=== PATIENT | male | born 1935 | race Caucasian/White ===

== ENCOUNTER 2017-02-22 10:31 | Emergency (ER) | payer MEDICARE ==
[2017-02-22 11:12] LABS: Bilirubin Negative (Negative); Blood, Urine Small (Negative); Glucose, Urine (Dipstick) Negative (Negative); Ketone, Urine Negative (Negative); Nitrite Negative (Negative); Protein, Urine (Dipstick) Negative (Neg-Trace); Urobilinogen 0.2 mg/dL (0.2-1.0)
[2017-02-22 11:15] LABS: Bacteria/HPF None Seen HPF (None Seen); Hyaline Casts/LPF 0-3 HYALINE CAST LPF (0-3 Hyaline); Squamous Epithelial None Seen HPF (0-3); WBC/HPF None Seen HPF (0-3)
[2017-02-22 11:16] LABS: #Eosinphils 0.1 thou/uL (0.0-0.7); #Lymphocytes 0.9 thou/uL (1.20-3.40); #Monocytes 0.5 thou/uL (0.11-0.59); #Neutrophils 3.6 thou/uL (1.40-6.50); %Basophils 0.2 % (0.0-1.0); %Eosinophils 2.1 % (0.0-10.0); %Lymphocytes 17.2 % (21.0-51.0); %Monocytes 10.4 % (0.0-10.0); Hematocrit 36.1 % (42.0-52.0); Mean Platelet Volume 6.6 fL (7.4-10.4); Red Blood Cell (RBC) Count 3.39 mill/uL (4.70-6.10); White Blood Cell (WBC) Count 5.2 thou/uL (4.8-10.8)
[2017-02-22 11:42] LABS: Troponin I Less than 0.010 ng/mL (< 0.028)
[2017-02-22 11:49] LABS: ALT (SGPT) 23 U/L (8-55); AST (SGOT) 31 U/L (5-34); Alkaline Phosphatase 123 U/L (40-150); Anion Gap 10 mmol/L (10-20); BUN (Urea Nitrogen) 29 mg/dL (8.4-25.7); Bilirubin, Total 0.9 mg/dL (0.2-1.2); Calc. Creatinine Clearance 0 mL/min (70-130); Calcium 9.3 mg/dL (7.8-10.44); Carbon Dioxide 25 mmol/L (23-31); Chloride 108 mmol/L (98-107); Estimated GFR-MDRD 57; Globulin 2.9 g/dL (2.4-3.5); Protein, Total 6.9 g/dL (5.8-8.1)
== END 2017-02-22 13:23 | disposition home or self-care (01) ==
LOC: ERS 10:31
DX: I95.1 Orthostatic hypotension (principal); Z79.82 Long term (current) use of aspirin; Z79.899 Other long term (current) drug therapy
CPT/HCPCS: 36415; 80053; 81003; 81015; 82553; 84484; 85025; 93005

== ENCOUNTER 2017-06-20 06:10 | Emergency (ER) | payer MEDICARE ==
[2017-06-20] MEDS ORDERED: Oxymetazoline HCl 0.05% ( 15 ML ) ONE (07:16)
[2017-06-20 07:48] LABS: #Eosinphils 0.3 thou/uL (0.0-0.7); #Monocytes 0.6 thou/uL (0.11-0.59); #Neutrophils 4.6 thou/uL (1.40-6.50); %Basophils 0.4 % (0.0-1.0); %Lymphocytes 15.1 % (21.0-51.0); %Monocytes 9.7 % (0.0-10.0); %Neutrophils 70.8 % (42.0-75.0); Hemoglobin 13.1 g/dL (14.0-18.0); Mean Corpuscular HGB CONC 32.9 g/dL (32.0-36.0); Mean Corpuscular Hemoglobin 33.6 pg (27.0-31.0); Mean Platelet Volume 6.7 fL (7.4-10.4); Platelet Count 145 thou/uL (130-400); RBC Distribution Width 13.3 % (11.5-14.5); White Blood Cell (WBC) Count 6.4 thou/uL (4.8-10.8)
[2017-06-20 07:53] LABS: PTT 49.6 SEC (22.9-36.1)
[2017-06-20 07:54] LABS: INR-International Normal Ratio 1.2; Prothrombin Time 15.8 SEC (12.0-14.7)
[2017-06-20 08:07] LABS: Anion Gap 8 mmol/L (10-20); BUN (Urea Nitrogen) 16 mg/dL (8.4-25.7); Calc. Creatinine Clearance 0 mL/min (70-130); Calcium 9.7 mg/dL (7.8-10.44); Carbon Dioxide 29 mmol/L (23-31); Chloride 106 mmol/L (98-107); Estimated GFR-MDRD 82; Glucose 112 mg/dL (83-110); Potassium 4.4 mmol/L (3.5-5.1); Sodium 139 mmol/L (136-145)
== END 2017-06-20 08:20 | disposition home or self-care (01) ==
LOC: ERS 06:10
DX: R04.0 Epistaxis (principal); D68.32 Hemorrhagic disorder due to extrinsic circulating anticoagulants; T45.515A Adverse effect of anticoagulants, initial encounter; I10 Essential (primary) hypertension; Z95.0 Presence of cardiac pacemaker; Z79.82 Long term (current) use of aspirin; Z79.01 Long term (current) use of anticoagulants; Z79.899 Other long term (current) drug therapy
CPT/HCPCS: 36415; 80048; 85025; 85610; 85730; 99283

== ENCOUNTER 2019-04-25 09:05 | Outpatient (CLI) | payer MEDICARE ==
--- NOTE | 2019-04-25 09:56 | MMO ---
Bilateral MAMMO Bilat Diag DDI+ZEESHAN. CLINICAL HISTORY: Patient is 84 years old and is seen for diagnostic exam. The patient has no family history of breast cancer. The patient has no personal history of cancer. VIEWS: The views performed were: bilateral craniocaudal with tomosynthesis; bilateral mediolateral oblique with tomosynthesis; and bilateral mediolateral with tomosynthesis. FILMS COMPARED: The present examination has been compared to a prior imaging study performed at [facility] on 04/25/2019. This study has been interpreted with the assistance of computer-aided detection. MAMMOGRAM FINDINGS: The breasts are almost entirely fat. Finding 1: Changes of left sided gynecomastia are noted. Finding 2: There is an oval mass measuring 3 millimeters with circumscribed margins seen in the outer region of the left breast. The mass was shown to be a lymph node on ultrasound. There are no suspicious masses, suspicious calcifications, or areas of architectural distortion. IMPRESSION: THERE IS NO MAMMOGRAPHIC EVIDENCE OF MALIGNANCY. THE RESULTS OF THIS EXAM WERE SENT TO THE PATIENT. ACR BI-RADS Category 2 - Benign finding MAMMOGRAPHY NOTE: 1. A negative mammogram report should not delay a biopsy if a dominant of clinically suspicious mass is present. 2. Approximately 10% to 15% of breast cancers are not detected by mammography. 3. Adenosis and dense breasts may obscure an underlying neoplasm. Reported by: JAVI LLOYD MD Electonically Signed: [id number]
--- NOTE | 2019-04-25 11:11 | ULT ---
LIMITED LEFT BREAST ULTRASOUND: TECHNIQUE: Limited sonographic interrogation of the left breast at the 2 o'clock position in the region of mammo graphic mass was performed. FINDINGS: There is a 3-4 mm lymph node present in the region of mammographic concern and corresponding with the mammographic finding. Changes of left gynecomastia are demonstrated mammographically. IMPRESSION: BI-RADS category 2 - benign findings. The patient is referred back to his clinician. POS: OFF
== END 2019-04-25 09:06 | disposition home or self-care (01) ==
LOC: BICMAMMO 09:05
PROVIDERS: ATTEND Surgery
DX: N64.89 Other specified disorders of breast (principal)
CPT/HCPCS: 76642; 77066; G0279

== ENCOUNTER 2019-06-19 06:12 | Outpatient (CLI) | payer MEDICARE ==
[2019-06-19 11:36] LABS: #Eosinphils 0.2 thou/uL (0.0-0.7); #Lymphocytes 1.2 thou/uL (1.20-3.40); #Monocytes 0.6 thou/uL (0.11-0.59); %Basophils 0.9 % (0.0-1.0); %Lymphocytes 24.4 % (21.0-51.0); %Monocytes 12.4 % (0.0-10.0); %Neutrophils 59.2 % (42.0-75.0); Hemoglobin 11.9 g/dL (14.0-18.0); Mean Corpuscular HGB CONC 32.8 g/dL (32.0-36.0); Mean Corpuscular Hemoglobin 33.4 pg (27.0-31.0); Mean Platelet Volume 7.5 fL (7.4-10.4); Platelet Count 110 thou/uL (130-400); RBC Distribution Width 12.5 % (11.5-14.5); Red Blood Cell (RBC) Count 3.56 mill/uL (4.70-6.10); White Blood Cell (WBC) Count 5.1 thou/uL (4.8-10.8)
[2019-06-19 12:03] LABS: ALT (SGPT) 30 U/L (8-55); AST (SGOT) 40 U/L (5-34); Albumin 4.2 g/dL (3.4-4.8); Alkaline Phosphatase 99 U/L (40-110); Anion Gap 14 mmol/L (10-20); BUN (Urea Nitrogen) 16 mg/dL (8.4-25.7); Bilirubin, Total 0.9 mg/dL (0.2-1.2); Calc. Creatinine Clearance 0 mL/min (70-130); Calcium 9.6 mg/dL (7.8-10.44); Carbon Dioxide 25 mmol/L (23-31); Chloride 108 mmol/L (98-107); Estimated GFR-MDRD 71; Globulin 2.5 g/dL (2.4-3.5); Glucose 118 mg/dL (83-110); Protein, Total 6.7 g/dL (5.8-8.1); Sodium 143 mmol/L (136-145)
== END 2019-06-19 06:13 | disposition home or self-care (01) ==
LOC: LABBT 06:12
PROVIDERS: ATTEND Internal Medicine Cardiovascular Disease
DX: Z01.818 Encounter for other preprocedural examination (principal); I35.0 Nonrheumatic aortic (valve) stenosis; I25.10 Atherosclerotic heart disease of native coronary artery without angina pectoris
CPT/HCPCS: 80053; 85025; 93005; 93010

== ENCOUNTER 2019-06-22 05:51 | Inpatient (IN) | payer MEDICARE ==
[2019-06-22] MEDS ORDERED: Lidocaine 1% (PF) 30 ML VIAL ONE ×2 (06:39→07:37)
[2019-06-22] MEDS ORDERED: Heparin (Artline) 1,000 ML ONE (06:39)
[2019-06-22] MEDS ORDERED: Heparin 10,000 UNITS/1 ML VIAL ONE (06:39)
[2019-06-22] MEDS ORDERED: Fentanyl 100 MCG/2 ML VIAL ONE (07:11)
[2019-06-22] MEDS ORDERED: Midazolam HCl 2 mg/2 ml Vial ONE (07:11)
[2019-06-22] MEDS ORDERED: Protamine Sulfate 50 MG/5 ML VIAL ONE (08:41)
[2019-06-22] MEDS ORDERED: Sodium Chloride 0.9% 200 ML IV PRN (09:19)
[2019-06-22] MEDS ORDERED: Nitroglycerin 0.4 MG TAB (25 Tab Bottle) SL PRN (09:19)
[2019-06-22] MEDS ORDERED: Acetaminophen/Codeine 30-300mg Tablet PO PRN ×2 (09:19)
[2019-06-22] MEDS ORDERED: Sodium Chloride 0.9% 1,000 ML IV SCH (09:30)
[2019-06-22] MEDS ORDERED: Iopamidol 370 76% 50 ML VIAL FS ONE (09:42)
[2019-06-22] MEDS ORDERED: Iopamidol 370 76% 100 ML VIAL ONE (09:42)
[2019-06-22 13:18] VITALS: BMI 21.4
[2019-06-22] MEDS: Furosemide 20 MG TAB PO SCH (15:48)
[2019-06-22] MEDS: Carvedilol 3.125 MG TAB PO SCH (20:50)
[2019-06-22] MEDS ORDERED: Rosuvastatin 20 MG TAB PO SCH (21:00)
[2019-06-22] MEDS ORDERED: Potassium Chloride 20 MEQ TAB PO SCH (21:00)
[2019-06-22] MEDS ORDERED: Ezetimibe 10 MG TAB PO SCH (21:00)
--- NOTE | 2019-06-22 22:52 | CON ---
DATE OF CONSULTATION: HISTORY OF PRESENT ILLNESS: This is an 84-year-old gentleman I was asked to evaluate for possible 3rd time sternotomy, coronary bypass grafting and aortic valve replacement. His past medical history includes initial coronary bypass grafting in about 1977 when he underwent 2 vessel bypass grafts to the circumflex and right coronary artery by Dr. Miles. In 1992, he required repeat coronary bypass grafting at this institution with a ALTAMIRANO to the LAD and saphenous vein graft to the PDA and obtuse marginal. Since that time, he is in 2011. He had some sort of attempted stenting of his [place] circulation, which is essentially all occluded. In 2017, he had the distal anastomosis of his vein graft to his OM and his ALTAMIRANO to his LAD stented. He has continued to do well since that time, although did have a diagnosis of severe aortic valve stenosis in 2017, but I understand that it was not severe enough to warrant a TAVR. In any event, the patient has been followed along by Dr. Cummings and reports his echo has shown progression of his aortic valve stenosis. The patient denies any chest pain, syncope or heart failure. He continues to get up early every day and [place] His said he gets up at 5 a.m. and walks for 30 minutes to an hour. Catheterization was again done today demonstrating similar findings to his previous catheterization in 2017, although his distal OM graft is patent. His ALTAMIRANO to LAD has a stent in place and may have some disease at that site, but it is difficult to be certain. His right coronary artery is mildly diffusely diseased and there was a question of an ostial stenosis in 2017, but this appears unchanged. His [place] circulation is essentially occluded with a minimal flow in diagonal or ramus branch on the left side. The aortic valve is calcified. Most recent ejection fraction that I have available is an EF of about 25% to 30%. His valve area calculates to 0.47 with a mean gradient of 45. PAST MEDICAL HISTORY: Includes hypertension and dyslipidemia. SOCIAL HISTORY: He is . He is a nonsmoker. PHYSICAL EXAMINATION: GENERAL: He is alert, cooperative, gentleman, 5 foot 6 inches, about 150 pounds. NECK: Reveals radiated murmur. CARDIAC: Systolic murmur across his precordium. Well-healed sternal incision. ABDOMEN: Soft and nontender. EXTREMITIES: He has palpable femoral, popliteal, and pedal pulses. His entire left leg saphenous vein graft has been harvested and his right leg vein graft has been harvested from the groin to the mid calf. Radial pulses are intact. Past surgical history otherwise includes a pacemaker placement. At this time, the patient continued to feel that TAVR is his best approach with 3rd time sternotomy with coronary intervention being less than ideal. At this time, the patient may not have any usable saphenous vein. He does have a radial it might be able to be utilized from the left arm and his right mammary is of unknown status. Given his age, previous sternotomies and patent grafts, we would lean toward a TAVR as a most reasonable approach. Job ID: [id number]
[2019-06-23 04:41] LABS: Anion Gap 10 mmol/L (10-20); BUN (Urea Nitrogen) 11 mg/dL (8.4-25.7); Calc. Creatinine Clearance 68 mL/min (70-130); Calcium 8.9 mg/dL (7.8-10.44); Carbon Dioxide 26 mmol/L (23-31); Chloride 108 mmol/L (98-107); Estimated GFR-MDRD Greater than 90; Glucose 89 mg/dL (83-110); Potassium 3.8 mmol/L (3.5-5.1); Sodium 140 mmol/L (136-145)
[2019-06-23] MEDS: Carvedilol 3.125 MG TAB PO SCH (08:21)
[2019-06-23] MEDS: Furosemide 20 MG TAB PO SCH ×2 (08:21→14:08)
[2019-06-23] MEDS ORDERED: Ubidecarenone 50 MG CAP PO SCH (09:00)
[2019-06-23] MEDS ORDERED: Multivitamin W/ Minerals 1 TAB PO SCH (09:00)
[2019-06-23] MEDS ORDERED: Allopurinol 300 MG TAB PO SCH (09:00)
[2019-06-23] MEDS ORDERED: Aspirin 81 mg Enteric Coated Tablet PO SCH (09:00)
[2019-06-23 11:49] VITALS: BP 132/87; TEMP 97.6
--- NOTE | 2019-06-24 03:22 | DIS ---
DATE OF ADMISSION: 06/22/2019 DATE OF DISCHARGE: 06/23/2019 DISCHARGE DIAGNOSES: 1. Severe aortic stenosis with valve area of 0.47 cm2. 2. Ischemic cardiomyopathy with ejection fraction of 35% to 40%, which continues to fall. 3. Status post 2 previous coronary artery bypass grafting, with in-stent restenosis in the ALTAMIRANO to the LAD graft and the obtuse marginal graft and diseased right posterior descending graft. 4. Status post pacemaker placement for complete heart block and then upgrade to a biventricular pacemaker. 5. Nausea with Ranexa. 6. Chronic atrial fibrillation. 7. Multiple stents placed previously in [place]. 8. Hypercholesterolemia under good control. 9. Hypertension. 10. Former smoker. 11. Positive family history. DISCHARGE MEDICATIONS: He will resume Eliquis 2.5 mg b.i.d. on June 24. Other medications include, 1. Allopurinol 300 q.a.m. 2. Aspirin 81 daily. 3. Carvedilol 3.125 b.i.d. 4. Zetia 10 at bedtime. 5. Furosemide 20 b.i.d. 6. KCl 20 mEq q.p.m. 7. Rosuvastatin 20 mg at bedtime. 8. COQ10. DISCHARGE DISPOSITION: The patient is being referred to Dr. Kirk at [facility] in [place] for TAVR. He will be seen in the office in 2 months for followup. HOSPITAL COURSE: Mr. Hein has remained asymptomatic without chest pain, shortness of breath, or peripheral edema. He walks 30 minutes per day; however, on routine echocardiogram in the office, his ejection fraction fallen to 40% to 45%. He underwent cardiac catheterization, which revealed ejection fraction of 35% to 40 % with severe proximal anterior and inferobasal hypokinesis. His mean aortic gradient was 42 mm with an aortic valve area of 0.47 cm2. The LAD was totally occluded, circumflex was totally occluded with a second obtuse marginal filling retrograde from the first obtuse marginal graft. Right coronary artery was totally occluded proximally. Bypass grafts revealed patent ALTAMIRANO to the LAD. There was an 80% in-stent restenosis. The obtuse marginal graft had a 60% in-stent restenosis and was hazy. The right posterior descending had a 60% to 70% stenosis. He was seen in consultation by Dr. Arroyo, who performed his second bypass surgery. His concern was that of a third sternotomy and possibly not having adequate conduit for redo bypass. Therefore, he is being referred for TAVR in [place] and possible redo stenting. Job ID: [id number] MAGDALENO
== END 2019-06-23 14:10 | disposition home or self-care (01) | DRG 287 ==
LOC: CCL 05:51 → 2SW 12:59 → 2NO 20:03
PROVIDERS: ADMIT Internal Medicine Cardiovascular Disease; ATTEND Internal Medicine Cardiovascular Disease
PROC: 4A023N8 Measurement of Cardiac Sampling and Pressure, Bilateral, Percutaneous Approach (ICD-10-PCS; principal; 2019-06-22)
PROC: B2111ZZ Fluoroscopy of Multiple Coronary Arteries using Low Osmolar Contrast (ICD-10-PCS; 2019-06-22)
PROC: B2151ZZ Fluoroscopy of Left Heart using Low Osmolar Contrast (ICD-10-PCS; 2019-06-22)
DX: T82.855A Stenosis of coronary artery stent, initial encounter (principal); I48.20 Chronic atrial fibrillation, unspecified; I44.2 Atrioventricular block, complete; I35.0 Nonrheumatic aortic (valve) stenosis; I25.5 Ischemic cardiomyopathy; E78.00 Pure hypercholesterolemia, unspecified; I10 Essential (primary) hypertension; Y83.8 Other surgical procedures as the cause of abnormal reaction of the patient, or of later complication, without mention of misadventure at the time of the procedure; Z79.01 Long term (current) use of anticoagulants; Z87.891 Personal history of nicotine dependence; Z95.0 Presence of cardiac pacemaker; R11.0 Nausea
CPT/HCPCS: 36415; 76942; 80048; 80053; 85025; 93005; 93461; 93561; 94760; 99152; 99153; C1769; J1644; J2001; J2250; J2720; J3010; Q9967

== ENCOUNTER 2022-02-11 14:27 | Outpatient (CLI) | payer MEDICARE | END 2022-02-11 14:28 | disposition home or self-care (01) | LOC: BICMAMMO 14:27 | PROVIDERS: ATTEND Family Medicine | DX: M40.292 Other kyphosis, cervical region (principal); M81.0 Age-related osteoporosis without current pathological fracture | CPT/HCPCS: 77080 ==